=== PATIENT | female | born 1965 | race African-American/Black ===

== ENCOUNTER → 2018-12-06 | Outpatient (CLI) | payer BC, OTHER ==
--- NOTE | 2018-12-06 16:19 | KCIC ---
Indication: Pain radiating to left arm TECHNIQUE: Multiple views of cervical spine, multiple views of the left shoulder and multiple views of the left hand COMPARISON: None FINDINGS: Cervical spine: Loss of normal cervical lordosis. This could be due to muscle spasm or positioning. Atlantoaxial joint or is preserved. No compression deformity. Multilevel intervertebral disc space narrowing seen with small to 4 formation from C3-C7 and facet joints are in normal anatomic alignment without significant facet arthropathy. Prevertebral soft tissues are within normal limits. IMPRESSION: Multilevel moderate degenerative disc disease in the cervical spine. Shoulder: Findings/impression: No acute fracture or dislocation. No significant evidence of acromioclavicular or glenohumeral joint osteoarthritis. Visualized left lung is clear. Left hand: Findings/impression:no acute fracture or dislocation. No significant evidence of arthritic process. Electronically signed by: Efren Shukla DO (12/06/2018 4:16 PM) [facility]
== END | disposition home or self-care (01) ==
LOC: KCIC 14:27
PROVIDERS: ATTEND Nurse Practitioner Gerontology
DX: M50.30 Other cervical disc degeneration, unspecified cervical region (principal); M48.02 Spinal stenosis, cervical region; M79.2 Neuralgia and neuritis, unspecified
CPT/HCPCS: 72040; 73030; 73130

== ENCOUNTER → 2018-12-06 | Outpatient (CLI) | payer OTHER, BC ==
--- NOTE | 2018-12-10 16:51 | KCIC ---
Bilateral digital screening mammograms with 3-D tomosynthesis: Reason for examination: Routine screening. Comparison is made to previous study dated 05/24/2009. Bilateral mammograms in CC and oblique projections were obtained with 2-D imaging and 3-D tomosynthesis imaging on a Siemens Inspiration unit and reviewed on the workstation. Interpretation was made with the benefit of CAD. The skin and nipples show no abnormalities. No abnormal axillary lymph nodes are seen. The breast parenchyma is heterogeneously dense. (Breast density: Category C.) There are no dominant masses, suspicious calcifications or architectural distortion. Impression: No evidence of malignancy. Recommend routine screening. Your patient's mammogram demonstrates that she has dense breast tissue (breast density category C or D), which could hide abnormalities, and if she has other risk factors for breast cancer that have been identified, she might benefit from supplemental screening tests that may be suggested by you as her ordering physician. Dense breast tissue, in and of itself, is a relatively common condition. Therefore, this information is not provided to cause undue concern, but rather to raise your awareness and to promote discussion with your patient regarding the presence of other risk factors, in addition to dense breast tissue. Your patient's mammography results will be sent to her. BI-RAD Category 1: Negative. "Our facility is accredited by the [employer] Mammography Program." This patient's information has been entered into a reminder system for the patient to be notified with the results of her examination and a target date for the next mammogram. Electronically signed by: Donna Clarke MD (12/10/2018 4:48 PM) [id number]
== END | disposition home or self-care (01) ==
LOC: KCIC MAMMO 14:14
PROVIDERS: ATTEND Family Medicine
DX: Z12.31 Encounter for screening mammogram for malignant neoplasm of breast (principal)
CPT/HCPCS: 77063; 77067

== ENCOUNTER → 2019-01-27 | Outpatient (CLI) | payer OTHER ==
--- NOTE | 2019-01-27 09:46 | KCIC ---
CERVICAL SPINE WO CONTRAST History: Cervical radiculopathy. Left arm pain. Technique: Multiplanar, multi sequential noncontrast MR imaging was performed of the cervical spine. Comparison: Radiographs December 06, 2018 Findings: Straightening of the normal cervical lordosis. Normal vertebral body height. No fracture. No pathologic marrow replacing process. Normal appearance of the cervical spinal cord. No pathologic signal abnormality. C2-C3: No canal or neuroforaminal narrowing. C3-C4: Posterior disc osteophyte complex. Mild canal narrowing. Abutment of the ventral spinal cord. Cord flattening. Uncovertebral hypertrophy. Minimal neural foraminal narrowing. C4-C5: Posterior disc osteophyte complex. Mild canal narrowing. Mild cord flattening. Uncovertebral and facet arthropathy. No neural foraminal narrowing. C5-C6: Posterior disc osteophyte complex. Partial effacement of ventral CSF space. Mild cord flattening. Dorsal CSF spaces preserved. No neuroforaminal narrowing. C6-C7: Posterior disc osteophyte complex. No canal narrowing. No neuroforaminal narrowing. C7-T1: No canal or neuroforaminal narrowing. Impression: 1. Moderate multilevel cervical spondylosis most prominent C3-C4. 2. C3-C4 posterior disc osteophyte complex abutting the ventral spinal cord with cord deformity and mild canal narrowing. 3. C4-C5 and C5-C6 mild cord flattening. Electronically signed by: Ethan Armendariz DO (01/27/2019 9:44 AM) [id number]
== END | disposition home or self-care (01) ==
LOC: KCIC MRI 08:28
PROVIDERS: ATTEND Family Medicine
DX: M47.22 Other spondylosis with radiculopathy, cervical region (principal); M25.78 Osteophyte, vertebrae; M48.02 Spinal stenosis, cervical region; M89.38 Hypertrophy of bone, other site; M43.8X2 Other specified deforming dorsopathies, cervical region
CPT/HCPCS: 72141

== ENCOUNTER → 2020-03-10 | Outpatient (CLI) | payer OTHER ==
--- NOTE | 2020-03-10 19:02 | KCIC ---
Bilateral digital screening mammograms with 3-D tomosynthesis: Reason for examination: Routine screening. Comparison is made to previous studies dated 12/06/2018 and 05/24/2009. Bilateral mammograms in CC and oblique projections were obtained with 2-D imaging and 3-D tomosynthesis imaging on a Siemens Inspiration unit and reviewed on the workstation. Interpretation was made with the benefit of CAD. The skin and nipples show no abnormalities. No abnormal axillary lymph nodes are seen. The breast parenchyma is heterogeneously dense. (Breast density: Category C.) There are no dominant masses, suspicious calcifications or architectural distortion. Impression: No evidence of malignancy. Recommend routine screening. Your patient's mammogram demonstrates that she has dense breast tissue (breast density category C or D), which could hide abnormalities, and if she has other risk factors for breast cancer that have been identified, she might benefit from supplemental screening tests that may be suggested by you as her ordering physician. Dense breast tissue, in and of itself, is a relatively common condition. Therefore, this information is not provided to cause undue concern, but rather to raise your awareness and to promote discussion with your patient regarding the presence of other risk factors, in addition to dense breast tissue. Your patient's mammography results will be sent to her. BI-RAD Category 1: Negative. "Our facility is accredited by the [employer] Mammography Program." This patient's information has been entered into a reminder system for the patient to be notified with the results of her examination and a target date for the next mammogram. Electronically signed by: Donna Clarke MD (03/10/2020 6:59 PM) [id number]
== END ==
LOC: KCIC MAMMO 13:50
PROVIDERS: ATTEND Obstetrics & Gynecology
DX: Z12.31 Encounter for screening mammogram for malignant neoplasm of breast (principal)
CPT/HCPCS: 77063; 77067

== ENCOUNTER → 2020-08-30 | Outpatient (CLI) | payer OTHER ==
--- NOTE | 2020-08-30 14:57 | KCIC ---
MRI study of the left wrist without contrast Clinical indications: Anterior left wrist pain for years. No known injury. TECHNIQUE: Noncontrast MRI sequences of the left wrist were performed in all 3 planes. COMPARISON: Radiographic study of the left wrist dated July 23, 2020. FINDINGS: There is stress reaction bone marrow edema of the distal pole of the scaphoid bone and the proximal lateral aspect of the trapezium bone in association with narrowing of the joint space due to loss of articular cartilage. There is moderate spurring of this joint compartment. There is less pro minent degenerative spurring of the scaphoid trapezoid joint compartment. There is mild degenerative spurring of the first carpal metacarpal joint. No fracture line is evident. No avascular necrosis of the lunate bone is seen. However, there is mild stress reaction bone marrow edema of the lunate bone dorsally. This is related to anterior rotation of the lunate bone resulting in dorsal angulation of t he lunate capitate joint compartment. This may be seen with dorsal intercalated segmental instability . The scaphoid lunate ligament and lunate triquetrum ligament are intact otherwise. There is mild deg enerative cystic change of the carpal bones. There is mild degenerative osteoarthritis and small join t effusion of the pisiform triquetrum joint. There is mild proximal and medial subluxation of the pis iform bone with respect to the triquetrum bone. This may be due to ligament laxity. No periarticular ganglion cyst is seen. The triangular fibrocartilage complex is intact. No soft tissue mass is eviden t. Carpal tunnel is unremarkable and the no abnormal edema of the median nerve is seen. The flexor an d extensor tendons are intact and no tenosynovitis is seen. IMPRESSION: Dorsal intercalated segmental instability. Stress reaction bone marrow edema of the lunat e bone. No acute fracture or avascular necrosis. 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 Electronically signed by: Gino Ramírez MD (08/30/2020 2:54 PM) [id number]
== END ==
LOC: KCIC MRI 09:02
PROVIDERS: ATTEND Orthopaedic Surgery
DX: M19.032 Primary osteoarthritis, left wrist (principal); M77.8 Other enthesopathies, not elsewhere classified; M25.432 Effusion, left wrist; S63.092A Other subluxation of left wrist and hand, initial encounter; X58.XXXA Exposure to other specified factors, initial encounter; Y93.89 Activity, other specified; Y92.89 Other specified places as the place of occurrence of the external cause; Y99.8 Other external cause status
CPT/HCPCS: 73221

== ENCOUNTER → 2021-03-14 | Outpatient (CLI) | payer OTHER ==
--- NOTE | 2021-03-14 13:26 | KCIC ---
EXAMINATION: MRI RIGHT KNEE WITHOUT IV CONTRAST CLINICAL HISTORY: Acute medial knee pain 3 weeks ago, not improving. NKI. Concern for medial meniscus tear. TECHNIQUE: Multiplanar multisequential images obtained through the knee without intravenous contrast. COMPARISON: Right knee radiographs 03/07/2021 FINDINGS: MENISCI: Medial Meniscus: Probable horizontal tear in the posterior horn and body with questionable tiny flap displaced in the superior parameniscal gutter Lateral Meniscus: Intact. LIGAMENTS: ACL: Intact PCL: Intact MCL: Intact LCL Complex: Intact CARTILAGE: Medial Femoral Condyle: Moderate sized area(s) of predominantly low grade (less than 50% thickness) c artilage loss and or fissuring with smaller area(s) of full thickness cartilage loss and or fissuring with subchondral marrow reactive/cystic changes in the posterior condyle Medial Tibial Plateau: Normal Lateral Femoral Condyle: Normal Lateral Tibial Plateau: Normal Patella: Small area(s) of full thickness cartilage loss and or fissuring Trochlea: Small area(s) of full thickness cartilage loss and or fissuring with subchondral marrow ok ctive/cystic changes in the medial trochlea TENDONS: Distal quadriceps and patellar tendons intact. Popliteus tendon intact. BONES AND MARROW: No evidence of acute fracture or suspicious marrow replacing process. MUSCLES: Muscle bulk and signal intensity within normal limits. JOINT FLUID AND SYNOVIUM: No joint effusion. No synovitis. No Rooney's cyst. IMPRESSION: Probable medial meniscus tear. Mild full-thickness chondral wear in the medial and patellofemoral compartments as described. Electronically signed by: Yovanny Martin DO (03/14/2021 1:23 PM) [id number]
== END ==
LOC: KCIC MRI 07:55
PROVIDERS: ATTEND Physician Assistant
DX: S83.241A Other tear of medial meniscus, current injury, right knee, initial encounter (principal); X58.XXXA Exposure to other specified factors, initial encounter; Y93.89 Activity, other specified; Y92.89 Other specified places as the place of occurrence of the external cause; Y99.8 Other external cause status
CPT/HCPCS: 73721

== ENCOUNTER → 2021-04-18 | Outpatient (CLI) | payer OTHER ==
--- NOTE | 2021-04-18 16:29 | RAD ---
BILATERAL SCREENING MAMMOGRAM History: Routine screening. Comparison: Most recently on 03/10/2020. Technique: Routine 2D and 3D tomosynthesis digital mammogram views were obtained bilaterally. Interpr etation was assisted with the use of computer-aided detection. Findings: Breast Tissue Density C : The breasts are heterogeneously dense, which may obscure small masses. There are no dominant masses, suspicious microcalcifications, or architectural distortion. IMPRESSION: No mammographic evidence of malignancy. Recommend routine screening mammography in one year. BI-RADS category 1: Negative. Patient information is entered into the reminder system with a target due date for the next screening mammogram. "Our facility is accredited by the [employer] Mammography [employer]." Electronically signed by: TERESITA ABREU MD (04/18/2021 4:27 PM) [id number]
== END ==
LOC: MAMMO 10:27
PROVIDERS: ATTEND Family Medicine
DX: Z12.31 Encounter for screening mammogram for malignant neoplasm of breast (principal)
CPT/HCPCS: 77063; 77067

== ENCOUNTER 2021-05-09 08:17 | Day surgery (SDC) | payer OTHER ==
[~2021-05-09] VITALS: Ht 157.5 cm; Wt 96.0 kg
[~2021-05-09 08:17] MED LIST: HYDROmorphone 2 MG/ML VIAL IVP PRN; IV RINGERS,LACTATED 1000ML 1,000 ML IV SCH; MORPHINE SULFATE 2 MG/ML INJ. IVP PRN; PROCHLORPERAZINE 10 MG/2 ML VIAL. IVP PRN; fentaNYL PF VIAL 100 MCG/2 ML VIAL IVP PRN
[2021-05-09] MEDS ORDERED: PROPOFOL 10 MG/ML (20ML) VIAL. IV ONE ×2 (08:20→10:39)
[2021-05-09] MEDS ORDERED: LIDOCAINE 2% PF 5 ML VIAL. ONE (08:20)
[2021-05-09] MEDS ORDERED: MIDAZOLAM HCL/PF 2 MG/2 ML VIAL. ONE (08:21)
[2021-05-09] MEDS ORDERED: fentaNYL PF VIAL 100 MCG/2 ML VIAL ONE (08:21)
[2021-05-09 08:40] VITALS: BP 131/67
[2021-05-09] MEDS ORDERED: DORZ10DR27 OP (08:40)
[2021-05-09] MEDS ORDERED: MELO15TA23 PO (08:40)
[2021-05-09] MEDS ORDERED: OMEP20TA63 PO (08:40)
[2021-05-09] MEDS ORDERED: BUPIVACAINE-EPI 0.25% 30 ML VIAL KIT. ONE ×2 (10:06→10:12)
[2021-05-09] MEDS ORDERED: DEXAMETHASONE SOD PHOS 4 MG/ML VIAL ONE (10:27)
[2021-05-09] MEDS ORDERED: SEVOFLURANE 31 TO 60 MINUTES. IH ONE (10:27)
[2021-05-09] MEDS ORDERED: ONDANSETRON PF 4 MG/2 ML VIAL. ONE (10:27)
[2021-05-09] MEDS ORDERED: KETOROLAC 30 MG/ML VIAL. ONE (10:36)
--- NOTE | 2021-05-09 10:52 | PDOC4 ---
OPERATIVE NOTE Date: Date: May 09, 2021 Pre-Op Diagnosis: Medial meniscal tear right knee Post-Op Diagnosis: Same Procedure Performed: Right knee arthroscopy with partial medial meniscectomy Surgeon: Aysha Anesthesia Type: General Blood Loss: 20 cc Specimans Obtained: None Findings: See dictation Complications: None SHAUNNA FORREST Jr. DO May 09, 2021 10:52
[2021-05-09] MEDS ORDERED: HYDR-2759 PO (10:54)
--- NOTE | 2021-05-09 10:57 | DISCH ---
DISCHARGE INSTRUCTIONS Condition on Discharge Condition on Discharge: Stable Activity After Discharge Activity Instructions for Disc: Activity as tolerated, Avoid exertion Driving Instructions after Dis: Do not drive today Weight Bearing Status after Di: Full weight bearing Wound Incision Care Wound/Incision Care: Ice to area for comfort, Keep wound elevated Other wound/incision instructi: May change dressings postoperative day #3 Follow-Up Follow up with: 10 to 14 days SHAUNNA FORREST Jr. DO May 09, 2021 10:57
--- NOTE | 2021-05-09 11:09 | OP ---
DATE OF SURGERY: 05/09/2021 PREOPERATIVE DIAGNOSIS: Medial meniscal tear, right knee. POSTOPERATIVE DIAGNOSIS: Medial meniscal tear, right knee. PROCEDURE: Right knee arthroscopy with partial medial meniscectomy. SURGEON: Cachorro Olmstead Jr, DO ANESTHESIA: General. COMPLICATIONS: None. ESTIMATED BLOOD LOSS: 20 mL DESCRIPTION OF PROCEDURE: The patient was taken to the operative suite, given general anesthetic. Right lower extremity was placed in a knee alvarez, prepped and draped in a sterile fashion. Inferomedial and inferolateral portals were established. Knee was insufflated with saline. Visualization of the patellofemoral joint, noted this to be completely intact and stable. No chondral lesions were noted at this point. No loose bodies were noted throughout the knee including the medial and lateral gutters. But upon entering the medial compartment, the medial meniscus was noted to have a tear along the posterior horn, this was more toward the mid substance. The root was intact with probing, but this tear was noted to be unstable. Therefore, using basket forceps and a shaver, a partial medial meniscectomy was undertaken and this was debrided back to stable tissue. This was noted to be very stable with probing after that was performed; therefore, this was thoroughly irrigated and suctioned dry. All instruments were then removed. Wounds were then reapproximated after local was placed within the portal sites. The sterile dressing was applied. The patient was then taken from the operative bed to the postoperative bed, taken to the PACU in stable condition. RENAE DR: Anjelica TID: [id number]
--- NOTE | 2021-05-09 11:42 | HP ---
DATE OF SERVICE: 05/09/2021 ADMIT DATE: 05/09/2021 REASON FOR HISTORY AND PHYSICAL: Preoperatively, right knee arthroscopy. BRIEF HISTORY: The patient is a 56-year-old female who has had ongoing right knee pain, which has been unresponsive to conservative therapies including cortisone injections, ice, elevation, activity modification of activities and anti-inflammatories; therefore, in the office, we consented her for a right knee arthroscopy with partial medial meniscectomy. She is aware of the risks and benefits. REVIEW OF SYSTEMS: Unremarkable other than the right knee pain. MEDICAL HISTORY: Remarkable for diabetes and hypertension as well as glaucoma. PAST SURGICAL HISTORY: Unremarkable. SOCIAL HISTORY: The patient does not use any alcohol or tobacco at this point. MEDICATIONS: Include only occasional ibuprofen and Tylenol use as well as Cleocin suppositories occasionally p.r.n. MEDICATIONS ALLERGIES: None. PHYSICAL EXAMINATION: GENERAL: The patient is 62 inches tall, 200 pounds. MUSCULOSKELETAL: She has effusion in the knee, which is mild. Pain with palpation of the medial compartment. Positive Apley's test of the medial compartment. No instability in the varus, valgus or AP plane. Range of motion, full extension up to 120 degrees of flexion. No other significant findings. IMPRESSION: Medial meniscal tear, right knee. PLAN: At this time, I have talked to the patient about the diagnosis and the treatment plan. She will undergo a right knee arthroscopy with partial medial meniscectomy. Again, she is well aware of the risks, complications as well as benefits and expectations of surgery. We will proceed. JOSEPHINE/JOSE/AILYN DR: Anjelica TID: [id number]
[2021-05-09] MEDS ORDERED: HYDROcodone/APAP 5/325MG 1 TAB TABLET PO ONE (11:45)
[2021-05-09 13:00] VITALS: BP 127/52
== END 2021-05-09 13:30 | disposition home or self-care (01) ==
LOC: SURG 08:17
PROVIDERS: ATTEND Orthopaedic Surgery
DX: S83.241A Other tear of medial meniscus, current injury, right knee, initial encounter (principal); K21.9 Gastro-esophageal reflux disease without esophagitis; Z79.899 Other long term (current) drug therapy; Z98.890 Other specified postprocedural states; X58.XXXA Exposure to other specified factors, initial encounter; Y93.89 Activity, other specified; Y92.89 Other specified places as the place of occurrence of the external cause; Y99.8 Other external cause status
CPT/HCPCS: 29881; A4209; A4930; J0690; J1100; J1885; J2250; J2405; J2704; J3010